=== PATIENT | female | born 1990 | race Two or more races ===

== ENCOUNTER → 2024-10-11 | Outpatient (REF) | payer BC ==
[2024-10-15 14:02] LABS: HPV APTIMA Not Detected (Not Detected)
== END ==
LOC: M SFHCWAGY 14:40
PROVIDERS: ATTEND Obstetrics & Gynecology
DX: Z12.4 Encounter for screening for malignant neoplasm of cervix (principal)
CPT/HCPCS: 87624; G0123

== ENCOUNTER → 2024-11-22 | Outpatient (CLI) | payer BC | LOC: M RAD 13:54 | PROVIDERS: ATTEND Obstetrics & Gynecology | DX: N92.0 Excessive and frequent menstruation with regular cycle (principal) ==

== ENCOUNTER 2025-10-28 00:38 | Emergency (ER) | payer BC ==
[~2025-10-28] VITALS: Ht 165.1 cm; Wt 60.9 kg
[2025-10-28 00:53] VITALS: BP 120/75; TEMP 97.6; O2SAT 100
[2025-10-28] MEDS ORDERED: VALI2TAB PO (02:20)
== END 2025-10-28 02:25 | disposition home or self-care (01) ==
LOC: M ED 00:38
DX: S20.211A Contusion of right front wall of thorax, initial encounter (principal); Y92.9 Unspecified place or not applicable; Y93.9 Activity, unspecified; Y99.9 Unspecified external cause status; Z79.899 Other long term (current) drug therapy